=== PATIENT | female | born 1990 | race Caucasian/White ===

== ENCOUNTER 2018-02-03 18:02 | Emergency (ER) | payer OTHER ==
[~2018-02-03] VITALS: Ht 149.9 cm; Wt 43.5 kg
[~2018-02-03 18:02] MED LIST: MUCINEX1200 MG PO; PRENATAL CAPSU1 EACH
== END 2018-02-03 20:36 | disposition home or self-care (01) ==
LOC: ER 18:02
DX: J06.9 Acute upper respiratory infection, unspecified (principal)

== ENCOUNTER 2018-10-20 15:11 | Emergency (ER) | payer OTHER ==
[~2018-10-20] VITALS: Ht 147.3 cm; Wt 49.0 kg
== END 2018-10-20 19:25 | disposition home or self-care (01) ==
LOC: ER 15:11
DX: J32.8 Other chronic sinusitis (principal); B34.9 Viral infection, unspecified

== ENCOUNTER 2019-04-07 21:37 | Emergency (ER) | payer OTHER ==
[~2019-04-07] VITALS: Ht 149.9 cm; Wt 45.4 kg
[2019-04-07] MEDS ORDERED: PANADOL (21:48)
== END 2019-04-08 04:07 | disposition left against medical advice (07) ==
LOC: ER 21:37
DX: B34.9 Viral infection, unspecified (principal)

== ENCOUNTER 2020-04-11 21:08 | Emergency (ER) | payer OTHER ==
[~2020-04-11] VITALS: Ht 147.3 cm; Wt 45.4 kg
[~2020-04-11 21:08] MED LIST changes: +PANADOL
[2020-04-12] MEDS ORDERED: ACETAMINOPHEN500 M2 PO (02:28)
[2020-04-12] MEDS ORDERED: ORPHENADRINE C100 MG PO (02:28)
== END 2020-04-12 03:14 | disposition home or self-care (01) ==
LOC: ER 21:08
DX: M94.0 Chondrocostal junction syndrome [Tietze] (principal); M54.89 Other dorsalgia

== ENCOUNTER 2020-06-29 22:15 | Emergency (ER) | payer OTHER ==
[~2020-06-29] VITALS: Ht 147.3 cm; Wt 45.4 kg
[~2020-06-29 22:15] MED LIST changes: +ACETAMINOPHEN500 M2 PO; +ORPHENADRINE C100 MG PO
== END 2020-06-30 02:25 | disposition home or self-care (01) ==
LOC: ER 22:15
DX: J02.9 Acute pharyngitis, unspecified (principal); Z03.818 Encounter for observation for suspected exposure to other biological agents ruled out

== ENCOUNTER 2020-10-13 07:14 | Emergency (ER) | payer OTHER ==
[~2020-10-13] VITALS: Ht 144.8 cm; Wt 43.5 kg
[2020-10-13] MEDS ORDERED: ORPHENADRINE C100 MG PO (11:10)
[2020-10-13] MEDS ORDERED: SKELAGESIC PO (11:10)
[2020-10-13] MEDS ORDERED: AIRBORNE EFFER1 EACH PO (11:10)
== END 2020-10-13 12:36 | disposition home or self-care (01) ==
LOC: ER 07:14
DX: B34.9 Viral infection, unspecified (principal); M79.18 Myalgia, other site; Z11.52 Encounter for screening for COVID-19

== ENCOUNTER 2020-11-09 15:18 | Emergency (ER) | payer OTHER ==
[~2020-11-09] VITALS: Ht 144.8 cm; Wt 45.4 kg
[~2020-11-09 15:18] MED LIST changes: +AIRBORNE EFFER1 EACH PO; +SKELAGESIC PO
[2020-11-09] MEDS ORDERED: AMRIX15 MG PO (18:40)
== END 2020-11-09 18:57 | disposition home or self-care (01) ==
LOC: ER 15:18
DX: M62.830 Muscle spasm of back (principal); Z88.6 Allergy status to analgesic agent

== ENCOUNTER 2021-04-21 19:31 | Emergency (ER) | payer OTHER ==
[~2021-04-21] VITALS: Ht 144.8 cm; Wt 45.4 kg
[~2021-04-21 19:31] MED LIST changes: +AMRIX15 MG PO
[2021-04-21] MEDS ORDERED: CLARITIN10 M1 PO (20:19)
== END 2021-04-22 00:24 | disposition home or self-care (01) ==
LOC: ER 19:31
DX: B34.9 Viral infection, unspecified (principal); B96.0 Mycoplasma pneumoniae [M. pneumoniae] as the cause of diseases classified elsewhere

== ENCOUNTER 2021-11-22 01:39 | Emergency (ER) | payer OTHER ==
[~2021-11-22] VITALS: Ht 149.9 cm; Wt 48.1 kg
[~2021-11-22 01:39] MED LIST changes: +CLARITIN10 M1 PO
[2021-11-22] MEDS ORDERED: CIPRO500 MG PO (06:31)
== END 2021-11-22 06:38 ==
LOC: ER 01:39
DX: U07.1 COVID-19 (principal); N39.0 Urinary tract infection, site not specified; R30.0 Dysuria; R11.0 Nausea; Z88.6 Allergy status to analgesic agent; Z88.1 Allergy status to other antibiotic agents